=== PATIENT | female | born 1975 | race Caucasian/White ===

== ENCOUNTER → 2016-06-18 | Outpatient (CLI) | payer OTHER ==
[~2016-06-18] VITALS: Ht 172.7 cm; Wt 85.9 kg
[~2016-06-18] MED LIST: CALCIUM 500 +1 EAC5 PO; CENTRUM TABLET1 TAB PO; CLARITIN-D 121 EACH PO; CLARITIN-D 24 H1 TA1 PO; CLIMARA TD; COLACE100 MG PO; FERROUS GLUCON240 MG PO; METHADONE HCL 110 M1 PO; METHADONE HCL5 MG PO; METHADOSE10 M1 PO; METHADOSE5 MG PO; MOBIC7.5 MG PO; NEURONTIN600 MG PO; PRENATAL MULTI1 EAC2 PO; PRENATAL VITAM1 EAC6 PO; PRILOSEC 10MG C10 M1 PO; PRILOSEC 20 MG20 MG PO; PROVENTIL HFA6.7 G1; SINGULAIR 10 MG10 M1 PO; TRAMADOL 50 MG50 MG PO; VITAMINC500 PO; [UNRECOGNIZED DRUG - OTHER]
--- NOTE | ~2016-06-18 | HPC ---
[facility] [place] [address] PAIN MANAGEMENT CONSULTATION Name: ABRAM RUBI Room #: REG FOZIA Prince#: [id number] Admission: 06/18/16 Attend Phys: Avery Wilkerson, DO Discharge: Date of : 71 Report #: [id number] THIS REPORT FOR: //name// CC: CHAYITO Wilkerson The patient is a 41-year-old female, well known to pain clinic, typically treated for chronic pain syndrome requiring complex medication management and history of Funmi-Danlos syndrome. The patient was last seen in the pain clinic 03/01/2016, continued on baseline narcotic. She returns to pain clinic today. We had a prolonged visit from 1345 to 1415, greater than 50% of this 30+ minute visit was spent counseling the patient. The patient states that her favorite donkey , she states it was a closest thing to a daughter to her. Apparently, she and her and neighbors took turns digging a grave for this 1200-pound beast. The patient had significant exacerbation of "all my joints" secondary to the grave digging exercise. On top of this, she tells me that the plumbing in her house has failed, apparently they have been without running water from their well for about a month. Per the patient, the pump in the well "got knocked out by ." They then replaced the pump and now plumbing in her house, which apparently is PVC pipe, has failed. She states that they have not had water for their toilets or for bathing now for several weeks. She states that she is personally replumbing the house again with PVC piping. The patient tells me her pain is a little bit worse, she has pain "all my joints," chronic aching sensation that she thinks is exacerbated with weather changes, long car rides and the increased activity recently. She notes her pain is "8-9 on a 0-10 visual analog scale." Also, she notes she is having some increasing throat pain and was exposed to some sick family members. PHYSICAL EXAMINATION: Shows a 41-year-old female, BMI is 28.8 kg/m2. Vital signs are stable with an exception that her temperature is up to 99.1 degrees. She does have some cervical adenopathy a little greater in the left than the right. She has very poor dentition. It is hard to tell if this is a dental abscess, which would by definition have to be bilateral with bilateral lymph nodes or if it is upper respiratory infection. Nonetheless, I suggested she follow up with field liability generalist physician. Upper extremity strength remains preserved. Gait is tandem, though she uses bilateral lower extremity braces and a walker for balance. Skin integument shows multiple cutaneous lesions unchanged. None appear to be purulent at this time. We reviewed the fact that opiate medications are being used to provide analgesia adequate to support activities of daily living, not attempting to achieve a specific pain score on the 0-10 Visual Analog Scale. The current opiate medications are providing sufficient analgesia to allow the patient to participate in activities of daily living. The patient is not exhibiting any [address] [address] PAIN MANAGEMENT CONSULTATION Name: ABRAM RUBI Room #: REG Alfa Garza.#: [id number] Admission: 06/18/16 Attend Phys: Vincent G. Rock, DO Discharge: Date of : 71 Report #: [id number] aberrant behavior suggestive of drug diversion. The patient is not having any adverse reactions to medications. The patient is not suffering from daytime somnolence or mental acuity changes. The patient is managing opiate-induced constipation with appropriate pthu-cyu-stodois agents and dietary considerations. The patient was counseled on concern for caution with operating a motor vehicle while using opiate medications. A physical exam was performed and the patient's functional status was evaluated. All patients with back pain were advised against the bed rest greater than 4 days and were advised to return to normal activities. Pain score assessment was noted and the treatment plan was reviewed with the patient. All current medications, both prescribed and OTC were reviewed and reconciled on the electronic medical record. Tobacco screening was accomplished and smoking cessation was advised when indicated. BMI was noted and diet/exercise modification was recommended for all patients following outside normal parameters. I reviewed with the patient today their responsibilities to safeguard prescription medications, reviewed their responsibility to utilize medications only as prescribed by the physician. They are to seek and receive pain medications only from 1 physician group ( [facility]). They are to use 1 pharmacy and keep the clinic informed if they change pharmacies. Their responsibilities include making followup visits in a timely fashion and to avoid abrupt discontinuation of medication usage. Their responsibilities further include bringing their medications (bottles from the pharmacy with residual pills) to the visit for possible confirmation of pill counts and the patient understands it is their responsibility to submit to random drug screens to ensure both that the medications prescribed are present, and that no other controlled substances are present. All prescriptions provided today were generated electronically. ASSESSMENT: Chronic pain syndrome secondary to Funmi-Danlos syndrome on a chronic pain patient requiring complex medication management. Last urine drug screen was on 06/03/2015. We are going to get a urine drug screen today, but with long discussion with the patient regarding psychosocial issues including complicated grief for her donkey, family stressors related to plumbing issues that she and her are attempting to handle on their own, we elected to postpone the drug screen till next visit. I have taken the liberty of renewing the patient's medications unchanged, tramadol 50 mg 1 tablet t.i.d., Meloxicam 7.5 b.i.d., gabapentin 600 mg 2 tablets t.i.d., methadone 10 mg t.i.d. and methadone 5 mg one-half tablet t.i.d., dispensed 45 tablets (90 of the 10 mg tablets) with prescriptions for [address] [address] PAIN MANAGEMENT CONSULTATION Name: ABRAM RUBI ELYSSA Room #: REG FOZIA Prince#: [id number] Admission: 06/18/16 Attend Phys: Avery Wilkerson DO Discharge: Date of : 71 Report #: [id number] today, 4 weeks and 8 weeks release. The patient was discharged in good and stable condition. By: 1530 [id number] Avery Wilkerson DO /nt
[2016-06-18 13:35] VITALS: BP 120/78
== END ==
LOC: PAIN 06:48
DX: G89.4 Chronic pain syndrome (principal); Q79.6 Ehlers-Danlos syndromes; Z87.891 Personal history of nicotine dependence

== ENCOUNTER → 2016-09-28 | Outpatient (CLI) | payer OTHER ==
[~2016-09-28] VITALS: Ht 172.7 cm; Wt 92.7 kg
[~2016-09-28] MED LIST changes: +ASPIR 8181 MG PO
[2016-09-28 13:27] VITALS: BP 148/92
== END | disposition home or self-care (01) ==
LOC: PAIN 06:56
DX: M54.5 Low back pain (principal); G89.29 Other chronic pain; Q79.6 Ehlers-Danlos syndromes; F11.20 Opioid dependence, uncomplicated; Z88.8 Allergy status to other drugs, medicaments and biological substances; Z79.82 Long term (current) use of aspirin; Z87.891 Personal history of nicotine dependence

== ENCOUNTER → 2016-12-20 | Outpatient (CLI) | payer OTHER ==
[~2016-12-20] VITALS: Ht 172.7 cm; Wt 98.4 kg
[~2016-12-20] MED LIST changes: +VOLTAREN GEL 1100 G2 TOP
--- NOTE | ~2016-12-20 | HPC ---
[facility] [address] [address] PAIN MANAGEMENT CONSULTATION Name: ABRAM RUBI Room #: REG FOZIA Prince#: [id number] Admission: 12/20/16 Attend Phys: Avery Wilkerson, DO Discharge: Date of : 71 Report #: [id number] THIS REPORT FOR: //name// CC: CHAYITO Wilkerson DATE OF SERVICE: 12/20/2016 The patient is an unfortunate 41-year-old female being treated for chronic intractable pain, neuropathic pain component, history of Funmi-Danlos syndrome requiring high risk complex medication management. The patient returns to pain clinic today. She was stable on her baseline medications including methadone 10 mg t.i.d. with p.r.n. 2.5 mg methadone t.i.d. We discontinued meloxicam due to hypertension, continued gabapentin 600 mg t.i.d. and tramadol for breakthrough pain. She returns to pain clinic today. Notes she is having increasing stress. Her father apparently has pneumonia and her is having back surgery in [place] (a revision of his fusion) next month. Hence, she is at the pain clinic early on her refill cycle, she does have #60 of 10 mg methadone tablets left and #37 of 5 mg methadone tablets left. We did accomplish a buccal drug swab today, no aberrant behavior suggestive for drug diversion, seems to be complying with our opiate consent to treat contract. It appears that the last drug test was in 05/2015. The patient notes pain is a little worse with stress and weather changes. Overall, rates her subjective pain score an 8 on Visual Analog Scale. Complaining of pain in her hands and rib area. Chronic back and leg pain remains problematic. She is wearing her bilateral lower extremity braces. PHYSICAL EXAMINATION: Shows a 41-year-old female, BMI is 33 kilograms per meter squared, blood pressure 156/93, pulse 99, respirations 18. Alert and oriented to person, place and time, judged to be a reasonable historian. Rises from chair using armrest, modestly antalgic gait, uses a walker. We reviewed the fact that opiate medications are being used to provide analgesia adequate to support activities of daily living, not attempting to achieve a specific pain score on the 0-10 Visual Analog Scale. The current opiate medications are providing sufficient analgesia to allow the patient to participate in activities of daily living. The patient is not exhibiting any aberrant behavior suggestive of drug diversion. The patient is not having any adverse reactions to medications. The patient is not suffering from daytime somnolence or mental acuity changes. The patient is managing opiate-induced constipation with appropriate rwtk-xwi-eegxugw agents and dietary [address] [address] PAIN MANAGEMENT CONSULTATION Name: ABRAM RUBI Room #: REG FOZIA Prince#: [id number] Admission: 12/20/16 Attend Phys: Avery Wilkerson DO Discharge: Date of : 71 Report #: [id number] considerations. The patient was counseled on concern for caution with operating a motor vehicle while using opiate medications. A physical exam was performed and the patient's functional status was evaluated. All patients with back pain were advised against the bed rest greater than 4 days and were advised to return to normal activities. Pain score assessment was noted and the treatment plan was reviewed with the patient. All current medications, both prescribed and OTC were reviewed and reconciled on the electronic medical record. Tobacco screening was accomplished and smoking cessation was advised when indicated. BMI was noted and diet/exercise modification was recommended for all patients following outside normal parameters. I reviewed with the patient today their responsibilities to safeguard prescription medications, reviewed their responsibility to utilize medications only as prescribed by the physician. They are to seek and receive pain medications only from 1 physician group ( [facility]). They are to use 1 pharmacy and keep the clinic informed if they change pharmacies. Their responsibilities include making followup visits in a timely fashion and to avoid abrupt discontinuation of medication usage. Their responsibilities further include bringing their medications (bottles from the pharmacy with residual pills) to the visit for possible confirmation of pill counts and the patient understands it is their responsibility to submit to random drug screens to ensure both that the medications prescribed are present, and that no other controlled substances are present. All prescriptions provided today were generated electronically. ASSESSMENT: Chronic pain syndrome requiring complex medication management, neuropathic pain component in a patient with history of Funmi-Danlos syndrome. RECOMMENDATION: Continue current medication unchanged, methadone 10-12 mg t.i.d., tramadol for breakthrough pain and gabapentin unchanged. We did get a buccal swab today. Follow up in 3 months for reevaluation. <ELECTRONICALLY SIGNED> By: Avery Wilkerson DO 12/21/16 [id number] Avery Wilkerson DO /nt
[2016-12-20 10:42] VITALS: BP 156/93
== END | disposition home or self-care (01) ==
LOC: PAIN 07:03
DX: Z76.0 Encounter for issue of repeat prescription (principal); G89.4 Chronic pain syndrome; I10 Essential (primary) hypertension; Z79.891 Long term (current) use of opiate analgesic; Z87.39 Personal history of other diseases of the musculoskeletal system and connective tissue; Z88.0 Allergy status to penicillin; Z87.891 Personal history of nicotine dependence; Z88.6 Allergy status to analgesic agent; Z88.8 Allergy status to other drugs, medicaments and biological substances; Z79.82 Long term (current) use of aspirin; Z98.890 Other specified postprocedural states

== ENCOUNTER → 2017-04-12 | Outpatient (CLI) | payer OTHER ==
[~2017-04-12] VITALS: Ht 172.7 cm; Wt 95.9 kg
[~2017-04-12] MED LIST changes: +CLONIDINE0.1 PO; +GYNODIOL0.5 MG PO
--- NOTE | ~2017-04-12 | HPC ---
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 The patient was last seen in the pain clinic on 12/20/2016. Continued on methadone 10-12 mg t.i.d. We discontinued meloxicam due to hypertension. Continued gabapentin 600 mg t.i.d., tramadol for breakthrough pain. Buccal drug swab collected at that visit was positive for methadone, but concerningly negative for EDDP (metabolite of methadone). It was positive for tramadol and gabapentin. The patient returns to the pain clinic today. We had a prolonged visit from 12:30 to 1300 hours, greater than 50% of the time was spent counseling the patient. The patient notes pain continues to be problematic, rates an 8 on a 10. States she is having increasing stress at home with her now status post, what sounds like a fairly, extensive 4-level fusion. She states chronic aching pain, rates it 8 on a VAS, exacerbates with weather changes. Today, she presents to the pain clinic. She is not wearing her usual bilateral lower extremity ankle braces, they are "out for repair." She is using a walker to help with ambulation. She is also warm with occasional wrist brace; she is not wearing those today. Physical examination shows a 42-year-old female, BMI is 32.2 kilograms per meter squared. Blood pressure is nominally elevated at 139/87, pulse 92, respirations 16. Alert and oriented to person, place and time, judged to be a reasonable historian. BMI is modestly elevated as noted at 32.2 kilograms per meter squared. She has not fallen in the last 3 months, but again does use a walker. Medication list was reconciled. She does have a history of hypertension, which is currently not treated pharmacologically. Chronic opiate therapy, she has had an opiate consent to treat contract since 09/09/2015. Again, last random swab was at last visit. PHYSICAL EXAMINATION: GENERAL: Today, again a 42-year-old female, BMI is 32.2 kilograms per meter squared. NEUROLOGIC: She is alert and oriented to person, place and time, judged to be a reasonable historian. [address] [address] PAIN MANAGEMENT CONSULTATION Name: ABRAM RUBI Room #: REG FOZIA Prince#: [id number] Admission: 04/12/17 Attend Phys: Avery Wilkerson DO Discharge: Date of : 71 Report #: [id number] HEENT: Pupils are pinpoint, but reactive. Extraocular muscles are intact. There is no nystagmus, lateral gaze deviation. EXTREMITIES: Rises from chair using a walker. Modestly antalgic gait. Subjective tenderness, all extremities. Range of motion not aggressively examined as the patient states joints really subluxable. We reviewed the fact that opiate medications are being used to provide analgesia adequate to support activities of daily living, not attempting to achieve a specific pain score on the 0-10 Visual Analog Scale. The current opiate medications are providing sufficient analgesia to allow the patient to participate in activities of daily living. The patient is not exhibiting any aberrant behavior suggestive of drug diversion. The patient is not having any adverse reactions to medications. The patient is not suffering from daytime somnolence or mental acuity changes. The patient is managing opiate-induced constipation with appropriate xcqd-ieu-wxvxpwe agents and dietary considerations. The patient was counseled on concern for caution with operating a motor vehicle while using opiate medications. A physical exam was performed and the patient's functional status was evaluated. All patients with back pain were advised against the bed rest greater than 4 days and were advised to return to normal activities. Pain score assessment was noted and the treatment plan was reviewed with the patient. All current medications, both prescribed and OTC were reviewed and reconciled on the electronic medical record. Tobacco screening was accomplished and smoking cessation was advised when indicated. BMI was noted and diet/exercise modification was recommended for all patients following outside normal parameters. I reviewed with the patient today their responsibilities to safeguard prescription medications, reviewed their responsibility to utilize medications only as prescribed by the physician. They are to seek and receive pain medications only from 1 physician group ( [facility]). They are to use 1 pharmacy and keep the clinic informed if they change pharmacies. Their responsibilities include making followup visits in a timely fashion and to avoid abrupt discontinuation of medication usage. Their responsibilities further include bringing their medications (bottles from the pharmacy with residual pills) to the visit for possible confirmation of pill counts and the patient understands it is their responsibility to submit to random drug screens to ensure both that the medications prescribed are present, and that no other controlled substances are present. All prescriptions provided today were generated electronically. RECOMMENDATIONS: Long discussion with the patient today about therapeutic options. Last Buccal random drug screen was positive for methadone, however, concern for negative methadone metabolite (EDDP). Given her methadone dose, I would assume that if she were taking methadone (30-37.5 mg/d) she should be [facility] [address] [place] [address] PAIN MANAGEMENT CONSULTATION Name: CELINAKESHAABRAM Room #: REG [facility] Suresh#: [id number] Admission: 04/12/17 Attend Phys: Avery Wilkerson DO Discharge: Date of : 71 Report #: [id number] positive for both the active drug and the metabolite. Prior urine tests have all been appropriate for prescribed medications. Again, discussion with the patient, she is at a supratherapeutic load of opiate. We did talk about opiate-induced hyperalgesia. We elected to decrease down to methadone 10 mg t.i.d. at this visit. We will initiate clonidine 0.1 at bedtime to help with any opiate withdrawal induced anxiety and may afford some co-analgesia. Next visit will plan to continue opiate wean, may consider addition of naltrexone low dose 1 mg diluted in 1000 mL of water; directions, 1 mL b.i.d. Microdosing has been associated with increased efficacy of opiate analgesics, thought to be through inhibiting excitatory functions of mu receptor. Again, this may cost the patient 50-75 dollars a month as it is typically not covered by insurance, but may be efficacious in her care. The patient was discharged in good and stable condition. Follow up in 3 months for reevaluation. Again, we will plan on continuing opiate wean at that time. Likely repeat a buccal drug swab, should be positive with methadone and EDDP, may consider running a urine drug screen if EDDP is screened in that test. <ELECTRONICALLY SIGNED> By: Avery Wilkerson DO 04/15/17 1026 [id number] Avery Wilkerson DO /nt
[2017-04-12 12:42] VITALS: BP 139/87
== END ==
LOC: PAIN 07:00
DX: G89.4 Chronic pain syndrome (principal); Q79.6 Ehlers-Danlos syndromes; Z79.899 Other long term (current) drug therapy

== ENCOUNTER → 2017-07-22 | Outpatient (CLI) | payer OTHER ==
[~2017-07-22] VITALS: Ht 172.7 cm; Wt 91.6 kg
--- NOTE | ~2017-07-22 | HPC ---
[facility] [place] [address] PAIN MANAGEMENT CONSULTATION Name: ABRAM RUBI Room #: REG DYLONAlfa Prince#: [id number] Admission: 07/22/17 Attend Phys: Avery Wilkerson DO Discharge: Date of : 71 Report #: [id number] THIS REPORT FOR: //name// CC: CHAYITO Wilkerson DATE OF SERVICE: 07/22/2017 The patient is a 42-year-old female being treated for Funmi-Danlos syndrome, chronic pain syndrome requiring complex medication management. Last seen in pain clinic 04/12/2017. She had prior been maintained on methadone 10 mg t.i.d. with an occasional 2.5 t.i.d. for breakthrough pain, tramadol 50 mg t.i.d., gabapentin 600 mg t.i.d. Last visit, she was having ongoing pain. I had prolonged discussion about opiate-induced hyperalgesia. We elected to trial and wean opiate analgesics overall. I obtained a random drug screen at that time, which was positive for methadone, but curiously negative for EDDP. I would have assumed it would have been positive for EDDP if the patient were taking methadone on a regular basis as this is a fairly consistent metabolite. It was positive for tramadol and gabapentin as well. I am unaware of the prevelance of EDDP in the buccal swab as opposed to the relatively consistent presence of this metabolite in urine drug screens if methadone use is chronic. Returns to pain clinic today. I am pleased to note that she has been able to wean her opiate analgesic and feels that it has been actually more helpful for her. She notes that she has been taking 7.5 mg and 5 mg intermittently. She feels that the "dip" causes increased pain. She is willing to wean to 5 mg on a regular basis hoping that this will be more functional. She rates her pain a 5-6 on VAS. Notes that it does interfere with function, but she is fairly vague on activity. She notes that she has been quite busy as her had a back surgery and was apparently quite immobile for a number of months. It sounds like he had a lumbar fusion with ongoing neuropathic pain and ultimately, has been started on moderately high dose steroids and seems to be doing better at this point. The patient notes that her is able to get up from bed in attempt to his hygiene, go to the restroom and get to the microwave, really do nothing else. The patient for her part has been taking care of their doggies which require a fair bit of activity. Otherwise, she notes weather changes (barometric pressure changes) and activity along with stress seems to exacerbate her pain. [address] [address] PAIN MANAGEMENT CONSULTATION Name: ABRAM RUBI Room #: REG FOZIA Prince#: [id number] Admission: 07/22/17 Attend Phys: Avery Wilkerson DO Discharge: Date of : 71 Report #: [id number] Again, she notes pain is primarily hands, rib area, low back, hips and ankles. She does have new lower extremity braces, which fit better and afford more stability for ankles. She rates pain a 5-6 on VAS. PHYSICAL EXAMINATION: Shows 42-year-old female, BMI is 30.7 kilograms per meter squared. She is alert and oriented to person, place and time, judged to be a reasonable historian. Has poor dental hygiene and multiple scratches on her arms. When I queried her about this, she tells me that they have a kitten that causes a lot of scratches. I did caution that with her on moderately high dose steroids, he needs to be very cautious about getting any secondary infections. Otherwise, the patient notes that she has lost a little bit of weight. BMI today is 30.7 kilograms per meter squared. Last visit, BMI was 32.2 kilograms per meter squared. She states she is with increasing activity and a little more dietary consciousness, she has been doing reasonably well. We reviewed the fact that opiate medications are being used to provide analgesia adequate to support activities of daily living, not attempting to achieve a specific pain score on the 0-10 Visual Analog Scale. The current opiate medications are providing sufficient analgesia to allow the patient to participate in activities of daily living. The patient is not exhibiting any aberrant behavior suggestive of drug diversion. The patient is not having any adverse reactions to medications. The patient is not suffering from daytime somnolence or mental acuity changes. The patient is managing opiate-induced constipation with appropriate [id number]-[id number] agents and dietary considerations. The patient was counseled on concern for caution with operating a motor vehicle while using opiate medications. A physical exam was performed and the patient's functional status was evaluated. All patients with back pain were advised against the bed rest greater than 4 days and were advised to return to normal activities. Pain score assessment was noted and the treatment plan was reviewed with the patient. All current medications, both prescribed and OTC were reviewed and reconciled on the electronic medical record. Tobacco screening was accomplished and smoking cessation was advised when indicated. BMI was noted and diet/exercise modification was recommended for all patients following outside normal parameters. I reviewed with the patient today their responsibilities to safeguard prescription medications, reviewed their responsibility to utilize medications only as prescribed by the physician. They are to seek and receive pain medications only from 1 physician group ( [facility]). They are to use 1 pharmacy and keep the clinic informed if they change pharmacies. Their responsibilities include making followup visits in a timely fashion and to avoid abrupt discontinuation of medication usage. Their responsibilities further include bringing their medications (bottles from the pharmacy with residual pills) to the visit for possible confirmation of pill counts and the patient [facility] [address] [place] [address] PAIN MANAGEMENT CONSULTATION Name: ABRAM RUBI Room #: REG FOZIA Prince#: [id number] Admission: 07/22/17 Attend Phys: Avery Wilkerson DO Discharge: Date of : 71 Report #: [id number] understands it is their responsibility to submit to random drug screens to ensure both that the medications prescribed are present, and that no other controlled substances are present. All prescriptions provided today were generated electronically. ASSESSMENT: Funmi-Danlos syndrome, chronic pain requiring complex medication management. RECOMMENDATIONS: We will continue methadone 5 mg t.i.d. Continue clonidine 0.1 one-half tablet at bedtime, I have taken the liberty of writing for 45 tablets, which is a 90-day prescription. I will have her general labor physician continue to write for that. I renewed gabapentin 600 mg t.i.d., 90 tablets with 3 refills. I did give the patient 3 months of her methadone prescription 5 mg t.i.d., 90 tablets to release today, 4 weeks and 8 weeks. Told the patient she will need to find another pain clinic provider likely closer to her home in [place], [place]. I did tell her that I will be leaving the practice and leaving the area in September. <ELECTRONICALLY SIGNED> By: Avery Wilkerson DO 07/25/1701 [id number] Avery Wilkerson DO /nt
[2017-07-22 13:25] VITALS: BP 109/87
== END ==
LOC: PAIN 06:56
DX: Q79.6 Ehlers-Danlos syndromes (principal); G89.29 Other chronic pain; Z79.899 Other long term (current) drug therapy